=== PATIENT | female | born 1950 | race Caucasian/White ===

== ENCOUNTER → 2018-03-17 | Outpatient (CLI) | payer MEDICARE | LOC: RAD 08:48 | DX: M17.12 Unilateral primary osteoarthritis, left knee (principal) ==

== ENCOUNTER 2018-03-31 10:30 | Outpatient (RCR) | payer MEDICARE | END 2018-03-31 11:00 | disposition home or self-care (01) | LOC: PT 10:30 | DX: M17.12 Unilateral primary osteoarthritis, left knee (principal); M22.2X2 Patellofemoral disorders, left knee; M62.81 Muscle weakness (generalized) | CPT/HCPCS: G8978-GP; G8979-GP ==